=== PATIENT | female | born 1985 | race Two or more races ===

== ENCOUNTER 2022-09-09 15:11 | Emergency (ER) | payer OTHER, SELFPAY ==
[2022-09-09 15:27] VITALS: BP 127/71; PULSE 89; RESP 16; TEMP 36.1; O2SAT 99; BMI 24.6
--- NOTE | 2022-09-09 15:39 | ED.GENADULT ---
HPI - General Adult General Chief complaint: Fall Stated complaint: fall at work Related Data Previous Rx's Medication Instructions Recorded cyclobenzaprine 10 mg tablet 10 mg PO Q8H #15 tabs 09/12/22 ibuprofen 600 mg tablet 600 mg PO Q6H PRN pain #20 tabs 09/12/22 Allergies Allergy/AdvReac Type Severity Reaction Status Date / Time No Known Allergies Allergy Verified 09/09/22 15:32 PMFSH Social History Social History Advance Directives: No Advance Directives Information Provided: Yes Physical Exam ED Vital Signs: Vital Signs - 24 hr 09/09/22 15:27 Temperature 96.9 F Pulse Rate 89 Respiratory Rate 16 Blood Pressure 127/71 Pulse Oximetry 99 Oxygen Delivery Method Room Air BMI result Body Mass Index 24.6 Course Course Course Narrative: RME: 36 yold female presents to the ED for upper back and left foot pain after fall at work today. patient denies hitting head or loss of conscsiousness. xray sordered Discharge Plan Discharge Clinical Impression: Fall Patient Disposition: Elopement Prescriptions: No Action ibuprofen 600 mg tablet 600 mg PO Q6H PRN (Reason: pain) Qty: 20 0RF cyclobenzaprine 10 mg tablet 10 mg PO Q8H Qty: 15 0RF Interventions: ED Discharge Assessment Last Done: 09/09/22 20:28 Discharge Date/Time: 09/09/22 20:29
== END 2022-09-09 20:29 | disposition left against medical advice (07) ==
PROVIDERS: Emergency Provider Emergency Medicine
DX: M54.6 Pain in thoracic spine (principal); M79.672 Pain in left foot
CPT/HCPCS: 99282; 99283

== ENCOUNTER 2022-09-12 10:27 | Emergency (ER) | payer OTHER, SELFPAY ==
[2022-09-12 10:33] VITALS: BP 120/70; PULSE 95; RESP 18; TEMP 36.6; O2SAT 99; BMI 24.7
--- NOTE | 2022-09-12 11:28 | ED_ITS ---
HPI - Fall General Chief Complaint: Fall <Kristin Wise NP - Last Filed: 09/12/22 12:07> Stated Complaint: fall <Kristin Wise NP - Last Filed: 09/12/22 12:07> Time Seen by Provider: 09/12/22 11:24 <Kristin Wise NP - Last Filed: 09/12/22 12:07> Source: patient and bank accountant <Kristin Wise NP - Last Filed: 09/12/22 12:07> Mode of arrival: ambulatory <Kristin Wise NP - Last Filed: 09/12/22 12:07> Limitations: language barrier <Kristin Wise NP - Last Filed: 09/12/22 12:07> History of Present Illness HPI Narrative: 36-year-old female healthy here with complaints of upper back pain after fall which occurred Thursday at while working. Patient reports that she was pulling a Pallet off a shelf on Thursday when she lost her balance falling backwards landing on her upper back on the ground. No head strike or loss of consciousness. Patient followed up with occupational health at work and was informed she may return to work. Patient feels like she still having pain and does not feel well enough to work. Patient denies any weakness, numbness or tingling in the upper extremities. Patient denies any fevers, incontinence of urine or stool. No chest pain or abdominal pain. <Kristin Wise NP - Last Filed: 09/12/22 12:07> Related Data Home Medications: Previous Rx's Medication Instructions Recorded cyclobenzaprine 10 mg tablet 10 mg PO Q8H #15 tabs 09/12/22 ibuprofen 600 mg tablet 600 mg PO Q6H PRN pain #20 tabs 09/12/22 <Kristin Wise NP - Last Filed: 09/12/22 12:07> Allergies/Adverse Reactions: Allergies Allergy/AdvReac Type Severity Reaction Status Date / Time No Known Allergies Allergy Verified 09/09/22 15:32 <Kristin Wise NP - Last Filed: 09/12/22 12:07> Review of Systems Review of Systems: Yes all other systems are reviewed and are negative <Kristin Wise WOODYARD OPERATOR - Last Filed: 09/12/22 12:07> Constitutional: Constitutional: Reports no additional constitutional complaints, Denies body ache(s), Denies chills, Denies fever(s), Denies headache(s) and Denies weakness <Kristin Wise WOODYARD OPERATOR - Last Filed: 09/12/22 12:07> Eyes: Eyes: Reports no additional eye complaints and Denies change in vision <Kristin Wise WOODYARD OPERATOR - Last Filed: 09/12/22 12:07> ENT: Reports system reviewed and no additional complaints, except as documented, Denies dizziness, Denies headache(s), Denies nasal congestion, Denies nasal discharge and Denies neck pain <Kristin Wise WOODYARD OPERATOR - Last Filed: 09/12/22 12:07> Cardiovascular: Cardiovascular: Reports no additional cardiovascular complaints, Denies chest pain, Denies leg edema and Denies dyspnea <Kristin Wise WOODYARD OPERATOR - Last Filed: 09/12/22 12:07> Respiratory: Respiratory: Reports no additional respiratory complaints, Denies cough and Denies dyspnea <Kristin Wise WOODYARD OPERATOR - Last Filed: 09/12/22 12:07> Gastrointestinal: Gastrointestinal: Reports no additional gastrointestinal complaints, Denies abdominal pain, Denies diarrhea, Denies nausea and Denies vomiting <Kristin Wise WOODYARD OPERATOR - Last Filed: 09/12/22 12:07> Genitourinary: Genitourinary: Reports no additional female genitourinary complaints and Denies urinary incontinence <Kristin Wise WOODYARD OPERATOR - Last Filed: 09/12/22 12:07> Musculoskeletal: Musculoskeletal: Reports no additional musculoskeletal complaints, Reports back pain, Denies arthralgias, Denies joint swelling, Denies neck pain, Denies numbness and Denies tingling <Kristin Wise WOODYARD OPERATOR - Last Filed: 09/12/22 12:07> Integumentary/Breasts: Skin/Breast: Reports system reviewed and no additional complaints, except as docu and Denies rash <Kristin Wise WOODYARD OPERATOR - Last Filed: 09/12/22 12:07> Neurologic: Reports system reviewed and no additional complaints, except as documented, Denies Abnormal speech present, Denies dizziness, Denies headache(s), Denies numbness, Denies tingling and Denies weakness <Kristin Wise NP - Last Filed: 09/12/22 12:07> [facility] Past Medical History Attestation statement: The following information was validated with the patient. <Kristin Wise NP - Last Filed: 09/12/22 12:07> Source: old records reviewed and nursing notes reviewed <Kristin Wise NP - Last Filed: 09/12/22 12:07> Social History Social History: Social History Advance Directives: No Advance Directives Information Provided: Yes <Kristin Wise NP - Last Filed: 09/12/22 12:07> Physical Exam Vital Signs: Vital Signs: Last Vital Signs Temp 97.8 F 09/12/22 10:33 Pulse 95 09/12/22 10:33 Resp 18 09/12/22 10:33 BP 120/70 09/12/22 10:33 Pulse Ox 99 09/12/22 10:33 O2 Del Method 09/12/22 10:33 BMI result Body Mass Index 24.7 <Kristin Wise NP - Last Filed: 09/12/22 12:07> Vital Signs: Last Vital Signs Temp 97.8 F 09/12/22 10:33 Pulse 95 09/12/22 10:33 Resp 18 09/12/22 10:33 BP 120/70 09/12/22 10:33 Pulse Ox 99 09/12/22 10:33 O2 Del Method 09/12/22 10:33 BMI result Body Mass Index 24.7 <Zaire Rodriguez MD - Last Filed: 09/12/22 16:14> Const: General: cooperative, healthy appearing, comfortable and no acute distress <Kristin Wise NP - Last Filed: 09/12/22 12:07> Orientation/consciousness: patient oriented x3 <Kristin Wise NP - Last Filed: 09/12/22 12:07> Limitations: no limitations <Kristin Wise NP - Last Filed: 09/12/22 12:07> HEENT: Head: Yes normal to inspection <Kristin Wise WOODYARD OPERATOR - Last Filed: 09/12/22 12:07> Ears: hearing grossly normal bilaterally <Kristin Wise WOODYARD OPERATOR - Last Filed: 09/12/22 12:07> General nose exam: Normal external nose present <Kristin Wise WOODYARD OPERATOR - Last Filed: 09/12/22 12:07> Face and sinus: Yes normal facial exam <Kristin Wise, WOODYARD OPERATOR - Last Filed: 09/12/22 12:07> Mouth: Normal oral and palatal mucosa present <Kristin Wise WOODYARD OPERATOR - Last Filed: 09/12/22 12:07> Throat: Yes posterior oropharynx normal <Kristin Wise WOODYARD OPERATOR - Last Filed: 09/12/22 12:07> Eyes: General: appearance normal, both eyes and all related structures <Kristin Wise WOODYARD OPERATOR - Last Filed: 09/12/22 12:07> Pupils: Equal, round and reactive pupils present <Kristin Wise WOODYARD OPERATOR - Last Filed: 09/12/22 12:07> Neck: Neck: Yes normal visual inspection <Kristin Wise WOODYARD OPERATOR - Last Filed: 09/12/22 12:07> Chest: Chest palpation & inspection: normal inspection of the chest <Linda Wise WOODYARD OPERATOR - Last Filed: 09/12/22 12:07> Resp: Effort & Inspection: normal respiratory effort <Kristin Wise WOODYARD OPERATOR - Last Filed: 09/12/22 12:07> Auscultation: clear to auscultation bilaterally <Kristin Wise WOODYARD OPERATOR - Last Filed: 09/12/22 12:07> Cardio: Rate: regular rate <Kristin Wise WOODYARD OPERATOR - Last Filed: 09/12/22 12:07> Rhythm: regular rhythm <Kristin Wise WOODYARD OPERATOR - Last Filed: 09/12/22 12:07> Peripheral pulses: Peripheral pulses 2+ throughout <Kristin Wise WOODYARD OPERATOR - Last Filed: 09/12/22 12:07> GI: Inspection: Yes normal to inspection <Kristin Wise WOODYARD OPERATOR - Last Filed: 09/12/22 12:07> Palpation (GI): Soft to palpation and nontender <Kristin Wise NP - Last Filed: 09/12/22 12:07> Auscultation: normal bowel sounds <Kristin Wise WOODYARD OPERATOR - Last Filed: 09/12/22 12:07> Back/Spine/Pelvis: Other: Tenderness to the muscular area of the upper back over the soft tissue of the thoracic spine which is worsened with palpation and movement of the upper extremities and rotation of the trunk. No midline tenderness over the spine. No step-offs or deformities. <Kristin Wise WOODYARD OPERATOR - Last Filed: 09/12/22 12:07> Thoracic/Lumbar Spine: thoracic and lumbar spine normal to inspection <Kristin Wise WOODYARD OPERATOR - Last Filed: 09/12/22 12:07> Skin: General skin exam: no rashes or lesions noted <Kristin Wise WOODYARD OPERATOR - Last Filed: 09/12/22 12:07> Neuro: General: patient oriented x3, moves all extremities, no focal motor deficits and normal sensation to monofilament <Kristin Wise WOODYARD OPERATOR - Last Filed: 09/12/22 12:07> Cranial nerves: Yes CN's II-XII intact bilaterally, Yes Equal, round and reactive pupils present, Yes Bilaterally intact EOM present, Yes Nystagmus not present, Yes Normal facial strength present and Yes Midline tongue present <Kristin Wise WOODYARD OPERATOR - Last Filed: 09/12/22 12:07> Cognition (Neuro): normal cognition <Kristin Wise WOODYARD OPERATOR - Last Filed: 09/12/22 12:07> Speech: No Abnormal speech present <Kristin Wise NP - Last Filed: 09/12/22 12:07> Gait exam (Neuro): Normal gait present <Kristin Wise NP - Last Filed: 09/12/22 12:07> Motor exam (neuro): 5/5 motor strength present throughout <Kristin Wise WOODYARD OPERATOR - Last Filed: 09/12/22 12:07> Sensory Exam: Normal double simultaneous stimulation for sensation <Kristin Wise NP - Last Filed: 09/12/22 12:07> Extrem: General: Yes normal to inspection <Kristin Wise NP - Last Filed: 09/12/22 12:07> Medical Decision Making Medical Decision Making MDM Narrative: 36-year-old female with mechanical fall on Thursday while working here with upper back pain. On exam pain is more musculoskeletal. No midline tenderness to suggest bony abnormality. Patient was started on NSAID, give muscle relaxant and recommendations to follow-up with were connection. Reviewed worrisome signs and symptoms of when to return to the emergency room. Comfortable plan for discharge home. <Kristin Wise NP - Last Filed: 09/12/22 12:07> Differential Diagnosis Differential Diagnoses: The differential diagnosis associated with the presentation includes <Kristin Wise NP - Last Filed: 09/12/22 12:07> Contusion, fracture <Kristin Wise NP - Last Filed: 09/12/22 12:07> Tests considered The following testing was considered but not selected: No midline spinal tenderness to suggest underlying fracture and need for imaging <Kristin Wise NP - Last Filed: 09/12/22 12:07> Prescription Management I considered prescription management with: Pain Medication <Kristin Wise NP - Last Filed: 09/12/22 12:07> Patient taking Tylenol home with continued symptoms. Will add NSAID, muscle relaxant for additional relief of symptoms <Kristin Wise NP - Last Filed: 09/12/22 12:07> Attestation Attending Attestation: I personally reviewed PA/resident/nurse practitioner note. I reviewed a all results and treatment plan. I agree with the assessment and plan. I agree with disposition <Zaire Rodriguez MD - Last Filed: 09/12/22 16:14> Discharge Plan Discharge Clinical Impression: Contusion of upper back <Kristin Wise NP - Last Filed: 09/12/22 12:07> Patient Disposition: Home, Self-Care <Kristin Wise NP - Last Filed: 09/12/22 12:07> Instructions: Contusion in Adults (ED) <Kristin Wise NP - Last Filed: 09/12/22 12:07> Additional Instructions: Calor o hielo. Estiramiento suave. [place] los medicamentos seg?n lo prescrito. Seguimiento con conexi?n fueron al [phone] [id number] <Kristin Wise NP - Last Filed: 09/12/22 12:07> Prescriptions: New ibuprofen 600 mg tablet 600 mg PO Q6H PRN (Reason: pain) Qty: 20 0RF cyclobenzaprine 10 mg tablet 10 mg PO Q8H Qty: 15 0RF <Kristin Wise NP - Last Filed: 09/12/22 12:07> Referrals: Physician,None [Primary Care Provider] - <Kristin Wise NP - Last Filed: 09/12/22 12:07> Stand Alone Forms: Work/School Release <Kristin Wise NP - Last Filed: 09/12/22 12:07> Interventions: ED Discharge Assessment Last Done: 09/12/22 11:51 <Kristin Wise NP - Last Filed: 09/12/22 12:07> Discharge Date/Time: 09/12/22 11:52 <Kristin Wise NP - Last Filed: 09/12/22 12:07> Print Language: Swazi <Kristin Wise NP - Last Filed: 09/12/22 12:07>
== END 2022-09-12 11:52 | disposition home or self-care (01) ==
PROVIDERS: Emergency Provider Emergency Medicine
DX: S20.229A Contusion of unspecified back wall of thorax, initial encounter (principal); W18.39XA Other fall on same level, initial encounter; Y93.89 Activity, other specified; Y92.89 Other specified places as the place of occurrence of the external cause
CPT/HCPCS: 99282; 99283